=== PATIENT | female | born 1990 ===

== ENCOUNTER 2018-03-30 11:41 | Emergency (ER) | payer OTHER ==
[2018-03-30] MEDS ORDERED: Tdap Vaccine 0.5 ml Vial (10-64 yrs) IM ONE (13:12)
--- NOTE | 2018-03-30 13:47 | RAD ---
Date of service: 03/30/2018 PROCEDURE: Left Foot Radiographs. HISTORY: 3rd digit trauma COMPARISON: None. FINDINGS: BONES: Normal. No fracture. JOINTS: Normal. SOFT TISSUES: Normal. OTHER FINDINGS: None. IMPRESSION: Normal left foot radiographs.
[2018-03-30] MEDS ORDERED: Lidocaine Hydrochloride 5 ML INJ ONE ×2 (14:20→14:21)
--- NOTE | 2018-03-30 14:50 | ED PDOC ---
Lower Extremity Pain/Injury Time Seen by Provider: 03/30/18 12:05 Chief Complaint (Nursing): Lower Extremity Problem/Injury Chief Complaint (Provider): I stubbed my toe and passed out History Per: Patient History/Exam Limitations: no limitations Additional Complaint(s): 28yo female states was at work, stubbed her L 2nd digit on a door, afterwards was in pain, toe was bleeding, EMS called and en route had brief syncopal episode, no seizure activity noted. Denies recent weakness, illness, vomiting/ diarrhea, headache, prior syncope or change vision or speech. Feels better in the ED, thinks the stress of the situation caused the brief syncopal episode. - Ankle/Foot Feet: 1 - toenail injury Past Medical History Reviewed: Historical Data, Nursing Documentation, Vital Signs Vital Signs: Last Vital Signs Temp 98.6 F 03/30/18 11:58 Pulse 76 03/30/18 12:54 Resp 16 03/30/18 12:54 BP 106/60 03/30/18 12:54 Pulse Ox 98 03/30/18 12:54 - Medical History PMH: No Chronic Diseases - Family History Family History: States: Unknown Family Hx - Home Medications Home Medications: Ambulatory Orders Medication Instructions Recorded Naproxen [Naprosyn] 500 mg PO BID PRN #14 tablet 03/30/18 traMADol [Ultram] 50 mg PO TID PRN #12 tab 03/30/18 - Allergies Allergies/Adverse Reactions: Allergies Allergy/AdvReac Type Severity Reaction Status Date / Time No Known Allergies Allergy Verified 03/30/18 11:58 Physical Exam - Reviewed Nursing Documentation Reviewed: Yes Vital Signs Reviewed: Yes - Physical Exam Appears: Positive for: Well, Non-toxic, No Acute Distress Head Exam: Positive for: ATRAUMATIC, NORMAL INSPECTION, NORMOCEPHALIC Skin: Positive for: Normal Color, Warm, DRY Eye Exam: Positive for: EOMI, Normal appearance, PERRL ENT: Positive for: Normal ENT Inspection Cardiovascular/Chest: Positive for: Regular Rate, Rhythm Respiratory: Positive for: CNT, Normal Breath Sounds Back: Positive for: Normal Inspection Extremity: Positive for: Other (L 2nd digit + nail avulsion w tenderness distally, mild venous bleeding) Neurologic/Psych: Positive for: Alert, Oriented - ECG O2 Sat by Pulse Oximetry: 98 Pulse Ox Interpretation: Normal Medical Decision Making Medical Decision Making: area cleansed w chlorhexidine, pain medicine ordered, adacel ordered as last Td unknown, podiatry consult performed. Podiatry team performed procedure of nail avulsion and recommendations for followup and wound care were communicated. Podiatry did not recommend antibiotics at this time. To see Dr Herzog for followup in 2-3 days. Disposition - Clinical Impression Clinical Impression: Toenail avulsion - Patient ED Disposition Is Patient to be Admitted: No Counseled Patient/Family Regarding: Studies Performed, Diagnosis, Need For Followup, Rx Given - Disposition Referrals: Ernesto Herzog DPM [Staff Provider] - Disposition: Routine/Home Disposition Time: 14:40 Condition: STABLE Additional Instructions: Keep foot elevated, wear surgical shoe, avoid high heels until cleared by specimen accessioner. Keep area bandaged for 48hrs, followup for further wound care. Prescriptions: Naproxen [Naprosyn] 500 mg PO BID PRN #14 tablet PRN Reason: Pain, Moderate (4-7) traMADol [Ultram] 50 mg PO TID PRN #12 tab PRN Reason: Pain, Moderate (4-7) Instructions: Toe Injury (DC), Nail Avulsion (DC) Forms: [employer]! ([place])
[2018-03-30] MEDS ORDERED: Absorbable Gelatin Sponge Size 12-7 ONE (14:57)
--- NOTE | 2018-03-30 14:58 | CARD ---
APPROVED REPORT Date of service: 03/30/2018 EKG Measurement Heart [id number] <Conclusion> Normal sinus rhythm Normal ECG
[2018-03-30 15:08] VITALS: BP 110/76; PULSE 80; RESP 14; TEMP 98
--- NOTE | 2018-03-30 15:34 | CP.PCM.CON ---
History of Present Illness - History of Present Illness History of Present Illness: Podiatry consult notes fr attending Daly Crawford: 26 y/o F patient with no PMH seen and evaluated in the ED complaining of pain and bleeding at the left 2nd toe. Patient was setting in bed comfortably and NAD. She is AAO X 3. Patient states that 3 hours ago she stubbed her left foot to the door at her work. patient states that she immediately felt pain which was 8/10 on VAS scale. She states that she used Tylenol which brought the pain down to 5/10. Patient states that her 2nd toe nail came off and it stated bleeding. patient states that she fainted when she saw the bleeding. Patient denies any other pedal complaint. patiet denies any recent F/N/V/C or SOB. PMH: None PSH: None Allergies: NKDA Social Hx: Denies smoking, ETOH use or illicit drug use. Review of Systems - Review of Systems Review of Systems: As per HPI Past Patient History - Past Social History Smoking Status: Never Smoked - PSYCHIATRIC Hx Substance Use: No - SURGICAL HISTORY Other/Comment: hernia repair Meds Home Medications: Home Medication List Medication Instructions Recorded Confirmed Type Naproxen [Naprosyn] 500 mg PO BID PRN #14 tablet 03/30/18 Rx traMADol [Ultram] 50 mg PO TID PRN #12 tab 03/30/18 Rx Allergies/Adverse Reactions: Allergies Allergy/AdvReac Type Severity Reaction Status Date / Time No Known Allergies Allergy Verified 03/30/18 11:58 Physical Exam - Constitutional Appears: Well, Non-toxic, No Acute Distress - Head Exam Head Exam: ATRAUMATIC, NORMOCEPHALIC - Extremities Exam Additional comments: Lower extremity focused exam: Vasc: DP/PT 2/4 b/l. Cap refill < 3 sec in all digits. Temp gradient warm to cool. Neuro: Gross and protective sensation are intact b/l. Derm: 2nd left toe nail totally avulsed from the lateral and proximal nail folds. down to the level of nail matrix. Partiel thickness of nail bed is . Nail matrix was avulsed too. Mild bleeding from the site of the avulsed nail. MSK: Pain on palpation of the avulased nail. Muscle power intact 5/5 b/l in all groups. major foot and joints ROM are WNL. - Neurological Exam Neurological exam: Alert, Oriented x3 - Psychiatric Exam Psychiatric exam: Normal Affect, Normal Mood Results - Vital Signs Recent Vital Signs: Last Vital Signs Temp 98.0 F 03/30/18 15:07 Pulse 80 03/30/18 15:07 Resp 14 03/30/18 15:07 BP 110/76 03/30/18 15:07 Pulse Ox 99 03/30/18 15:07 Assessment & Plan - Assessment and Plan (Free Text) Assessment: 26 y/o F patient seen and evaluated at the bed side for left 2nd toe nail avulsion and laceration. Plan: Patient seen and evaluated at the bed side. Plan discussed in details with Daly Crawford. Patient vitals and chart reviewed; patient is afebrile Discussed with the patient the need to remove the avulsed nail as there might be a laceration below it. Explained to the patient that she might need stitches in case of presence of laceration. Explained to the patient that her toe nail might not grow back or grow deformed. Benefits risks and possible complications of the procedure explained to the patient. Patient expressed verbal understanding and agreed to the procedure. patient 2nd left toe anesthetized using 5 ml of lidocain 1%. under aseptic condition removal of the avulsed toe nail using Smith scissors and a pickup. Wound cleaned and flushed with saline Dressing of the wound using sterile 4X4 gauze, Bacitracin, berenice and betadine. No stiches has to be taken. dispensed left surgical shoe and instructed to use it during ambulation. Patient intstructed to remove the dressing after 48 hours and to soak her left foot in Epson salt every day. Patient instructed to use OTC Tylenol if she felt any pain. Patient expressed verbal understanding. Patient to F/U at Daly Crawford office. - Date & Time Date: 03/30/18 Time: 15:39
[2018-04-02 19:11] VITALS: O2SAT 98
== END 2018-03-30 15:07 | disposition home or self-care (01) ==
LOC: H.ER 11:41
DX: S91.205A Unspecified open wound of left lesser toe(s) with damage to nail, initial encounter (principal); W22.8XXA Striking against or struck by other objects, initial encounter; Y92.89 Other specified places as the place of occurrence of the external cause; R55 Syncope and collapse